=== PATIENT | male | born 1980 | race Caucasian/White ===

== ENCOUNTER 2016-08-30 14:06 | Emergency (ER) | payer OTHER ==
[~2016-08-30] VITALS: Ht 180.3 cm; Wt 89.0 kg
[~2016-08-30 14:06] MED LIST: CELEXA20 MG PO; HYDROCODON-ACE1 EAC7 PO; INDOCIN50 MG PO; LEVAQUIN750 MG PO; LITHOBID300 MG PO; MOTRIN800 MG PO; PROZAC10 MG PO; ROXICODONE5 MG PO; TAMIFLU75 MG PO; ULTRAM50 MG PO; ZOFRAN4 MG PO; denies home meds
[2016-08-30 15:16] LABS: HEMATOCRIT 42.8 % (38.0-50.0); MCH 28.4 PG (29.0-34.0); MCHC 32.5 G/DL (30.0-36.0); MCV 87.3 FL (86-99); MEAN PLAT.VOLUME 9.6 uM^3 (9.0-12.4); PLATELET COUNT 272 K/uL (156-360); RBC DIS.WIDTH-CV 12.5 % (11.8-14.6); RBC DIS.WIDTH-SD 39.8 % (39-53); WHITE BLOOD COUNT 10.5 K/uL (4.1-10.2)
[2016-08-30 15:26] LABS: CHLORIDE 104 mEq/L (99-109); SODIUM 139 mEq/L (136-147)
[2016-08-30 15:29] LABS: GLUCOSE 92 mg/dL (70-99)
[2016-08-30 15:30] LABS: ANION GAP 9 MEQ/L (2-14)
[2016-08-30 15:31] LABS: TOTAL BILIRUBIN 1.1 mg/dL (0.0-1.0)
[2016-08-30 15:32] LABS: ALKALINE PHOSPHATASE 115 IU/L (3-129); GFR ESTIMATE (CALCULATED) > 59 mL/min/
[2016-08-30 15:33] LABS: UREA NITROGEN (BUN) 9 mg/dL (9-23)
[2016-08-30 16:30] LABS: ADD MIUA? NO; BILIRUBIN NEGATIVE; BLOOD NEGATIVE; COLOR STRAW ((YELLOW)); GLUCOSE (STRIP) NEGATIVE; KETONES 20; LEUKOCYTES NEGATIVE; NITRITE NEGATIVE; PROTEIN (STRIP) NEGATIVE; SPECIFIC GRAVITY 1.005 (1.000-1.030); UCUL ADDED? NO; UROBILINOGEN 0.2 MG/DL (0.2-1.0)
[2016-08-30 16:30] LABS: LIPASE 6 U/L (1.0-51.0)
[2016-08-30] MEDS ORDERED: ZOFRAN ODT4 MG PO (19:22)
[2016-08-30] MEDS ORDERED: FLAGYL500 MG PO (19:22)
[2016-08-30] MEDS ORDERED: BENTYL20 MG PO (19:22)
[2016-08-30 19:47] VITALS: BP 114/65
== END 2016-08-30 19:47 | disposition home or self-care (01) ==
LOC: EME 14:06
DX: A04.9 Bacterial intestinal infection, unspecified (principal); R10.30 Lower abdominal pain, unspecified; Z88.0 Allergy status to penicillin; Z88.8 Allergy status to other drugs, medicaments and biological substances; R11.0 Nausea
CPT/HCPCS: 74176; 80053; 81003; 83690; 85027; 87493; 87506; 99281; 99284; J0500

== ENCOUNTER 2016-12-11 17:13 | Emergency (ER) | payer OTHER ==
[~2016-12-11] VITALS: Ht 180.3 cm; Wt 87.0 kg
[~2016-12-11 17:13] MED LIST changes: +BENTYL20 MG PO; +FLAGYL500 MG PO; +ZOFRAN ODT4 MG PO
[2016-12-11 18:03] LABS: ADD MIUA? YES; BILIRUBIN NEGATIVE; BLOOD MODERATE; COLOR YELLOW ((YELLOW)); GLUCOSE (STRIP) NEGATIVE; KETONES NEGATIVE; LEUKOCYTES NEGATIVE; NITRITE NEGATIVE; PROTEIN (STRIP) NEGATIVE; SPECIFIC GRAVITY 1.013 (1.000-1.030); UROBILINOGEN 0.2 MG/DL (0.2-1.0)
[2016-12-11 18:04] LABS: HEMATOCRIT 45.9 % (38.0-50.0); MCH 28.6 PG (29.0-34.0); MCHC 32.9 G/DL (30.0-36.0); MCV 86.9 FL (86-99); MEAN PLAT.VOLUME 9.7 uM^3 (9.0-12.4); PLATELET COUNT 244 K/uL (156-360); RBC DIS.WIDTH-CV 13.8 % (11.8-14.6); RBC DIS.WIDTH-SD 44.2 % (39-53); RED BLOOD COUNT 5.28 M/uL (4.00-5.50); WHITE BLOOD COUNT 8.9 K/uL (4.1-10.2)
[2016-12-11 18:06] LABS: BACTERIA RARE /HPF; EPITHELIAL CELLS NONE SEEN /HPF; MUCUS 1+ /LPF; RED BLOOD CELLS 20-30 /HPF (0-5); UCUL ADDED? NO; WHITE BLOOD CELLS 0-5 /HPF (0-5)
[2016-12-11] MEDS ORDERED: CLONIDINE HCL0.1 MG PO (18:07)
[2016-12-11] MEDS ORDERED: CITALOPRAM HBR20 MG PO (18:07)
[2016-12-11] MEDS ORDERED: QUETIAPINE FUM100 MG PO (18:07)
[2016-12-11 18:14] LABS: CHLORIDE 103 mEq/L (99-109); SODIUM 139 mEq/L (136-147)
[2016-12-11 18:16] LABS: GLUCOSE 93 mg/dL (70-99)
[2016-12-11 18:17] LABS: ANION GAP 9 MEQ/L (2-14)
[2016-12-11 18:18] LABS: TOTAL BILIRUBIN 1.4 mg/dL (0.0-1.0)
[2016-12-11 18:20] LABS: ALKALINE PHOSPHATASE 90 IU/L (3-129); GFR ESTIMATE (CALCULATED) > 59 mL/min/
[2016-12-11 18:21] LABS: UREA NITROGEN (BUN) 9 mg/dL (9-23)
[2016-12-11] MEDS ORDERED: ROXICODONE5 MG PO (20:19)
[2016-12-11] MEDS ORDERED: ZOFRAN ODT4 MG PO (20:19)
[2016-12-11 20:32] VITALS: BP 107/77
== END 2016-12-11 20:33 | disposition home or self-care (01) ==
LOC: EME 17:13
DX: N20.1 Calculus of ureter (principal); R30.0 Dysuria; R11.2 Nausea with vomiting, unspecified; F17.200 Nicotine dependence, unspecified, uncomplicated
CPT/HCPCS: 74176; 80053; 81003; 85027; 99281; 99284

== ENCOUNTER 2016-12-17 10:53 | Emergency (ER) | payer OTHER ==
[~2016-12-17] VITALS: Ht 180.3 cm; Wt 87.1 kg
[~2016-12-17 10:53] MED LIST changes: +CITALOPRAM HBR20 MG PO; +CLONIDINE HCL0.1 MG PO; +QUETIAPINE FUM100 MG PO
[2016-12-17 11:51] LABS: ADD MIUA? YES; BILIRUBIN NEGATIVE; BLOOD NEGATIVE; COLOR YELLOW ((YELLOW)); GLUCOSE (STRIP) NEGATIVE; KETONES NEGATIVE; LEUKOCYTES NEGATIVE; NITRITE NEGATIVE; PROTEIN (STRIP) 30; SPECIFIC GRAVITY 1.026 (1.000-1.030); UROBILINOGEN 0.2 MG/DL (0.2-1.0)
[2016-12-17 12:29] LABS: HEMATOCRIT 44.2 % (38.0-50.0); MCH 28.2 PG (29.0-34.0); MCHC 32.1 G/DL (30.0-36.0); MCV 87.7 FL (86-99); MEAN PLAT.VOLUME 10.2 uM^3 (9.0-12.4); PLATELET COUNT 215 K/uL (156-360); RBC DIS.WIDTH-CV 14.1 % (11.8-14.6); RBC DIS.WIDTH-SD 45.1 % (39-53); RED BLOOD COUNT 5.04 M/uL (4.00-5.50); WHITE BLOOD COUNT 5.7 K/uL (4.1-10.2)
[2016-12-17 12:49] LABS: BACTERIA RARE /HPF; EPITHELIAL CELLS RARE /HPF; MUCUS 4+ /LPF; WHITE BLOOD CELLS 0-5 /HPF (0-5)
[2016-12-17 12:50] LABS: CHLORIDE 107 mEq/L (99-109); POTASSIUM 4.2 mEq/L (3.7-5.4); SODIUM 141 mEq/L (136-147)
[2016-12-17 12:51] LABS: GLUCOSE 110 mg/dL (70-99)
[2016-12-17 12:53] LABS: ANION GAP 6 MEQ/L (2-14)
[2016-12-17 12:55] LABS: GFR ESTIMATE (CALCULATED) > 59 mL/min/
[2016-12-17 12:56] LABS: UREA NITROGEN (BUN) 11 mg/dL (9-23)
[2016-12-17] MEDS ORDERED: CITRATE OF MAG296 ML PO (13:01)
[2016-12-17 13:22] VITALS: BP 124/73
== END 2016-12-17 13:07 | disposition home or self-care (01) ==
LOC: EME 10:53
PROVIDERS: Physician Assistant
DX: K59.00 Constipation, unspecified (principal); Z87.442 Personal history of urinary calculi; F17.200 Nicotine dependence, unspecified, uncomplicated
CPT/HCPCS: 74000; 80048; 81003; 85027; 99281; 99283; J1885

== ENCOUNTER 2017-02-07 23:06 | Emergency (ER) | payer OTHER ==
[~2017-02-07] VITALS: Ht 180.3 cm; Wt 86.4 kg
[~2017-02-07 23:06] MED LIST changes: +CITRATE OF MAG296 ML PO
[2017-02-07] MEDS ORDERED: NARCAN4 MG NS (23:56)
[2017-02-08 00:11] VITALS: BP 101/59
== END 2017-02-08 00:11 | disposition home or self-care (01) ==
LOC: EME 23:06
DX: T40.1X1A Poisoning by heroin, accidental (unintentional), initial encounter (principal); T40.5X1A Poisoning by cocaine, accidental (unintentional), initial encounter; F17.200 Nicotine dependence, unspecified, uncomplicated; B19.20 Unspecified viral hepatitis C without hepatic coma; Z88.0 Allergy status to penicillin; Z88.8 Allergy status to other drugs, medicaments and biological substances
CPT/HCPCS: 99281; 99284

== ENCOUNTER 2017-04-18 10:03 | Emergency (ER) | payer OTHER ==
[~2017-04-18] VITALS: Ht 180.3 cm; Wt 94.8 kg
[~2017-04-18 10:03] MED LIST changes: +NARCAN4 MG NS
[2017-04-18] MEDS ORDERED: PREDNISONE20 MG PO (13:00)
[2017-04-18] MEDS ORDERED: MUCINEX D ER T1 EAC1 PO (13:00)
[2017-04-18] MEDS ORDERED: VENTOLIN HFA18 GM IH (13:00)
[2017-04-18 13:52] VITALS: BP 118/71
== END 2017-04-18 13:55 | disposition home or self-care (01) ==
LOC: EME 10:03
DX: J40 Bronchitis, not specified as acute or chronic (principal); F17.200 Nicotine dependence, unspecified, uncomplicated; B19.20 Unspecified viral hepatitis C without hepatic coma; Z88.0 Allergy status to penicillin; Z88.6 Allergy status to analgesic agent
CPT/HCPCS: 71020; 94640; 99281; 99283

== ENCOUNTER 2017-04-25 12:29 | Emergency (ER) | payer OTHER ==
[~2017-04-25] VITALS: Ht 180.3 cm; Wt 97.1 kg
[~2017-04-25 12:29] MED LIST changes: +MUCINEX D ER T1 EAC1 PO; +PREDNISONE20 MG PO; +VENTOLIN HFA18 GM IH
[2017-04-25 13:15] LABS: HEMATOCRIT 43.1 % (38.0-50.0); MCH 29.6 PG (29.0-34.0); MCHC 33.9 G/DL (30.0-36.0); MCV 87.4 FL (86-99); PLATELET COUNT 209 K/uL (156-360); RBC DIS.WIDTH-CV 13.7 % (11.8-14.6); RBC DIS.WIDTH-SD 44.2 % (39-53); RED BLOOD COUNT 4.93 M/uL (4.00-5.50); WHITE BLOOD COUNT 8.1 K/uL (4.1-10.2)
[2017-04-25 13:38] LABS: ANION GAP 8 MEQ/L (2-14); CHLORIDE 99 MEQ/L (99-109); POTASSIUM 3.7 MEQ/L (3.7-5.4); SAMPLE HEMOLYSIS CHECK 0; SAMPLE ICTERIC CHECK 0; SAMPLE LIPEMIA CHECK 0; SODIUM 135 MEQ/L (136-147)
[2017-04-25 13:43] LABS: GFR ESTIMATE (CALCULATED) > 59 mL/min/ (58.99-99999); GLUCOSE 94 mg/dL (70-99); UREA NITROGEN (BUN) 16 mg/dL (9-23)
[2017-04-25] MEDS ORDERED: FLONASE16 G1 BOTH NARES (14:54)
[2017-04-25] MEDS ORDERED: VENTOLIN HFA18 GM IH (14:55)
[2017-04-25] MEDS ORDERED: MOTRIN600 MG PO (14:55)
[2017-04-25 15:04] VITALS: BP 114/86
== END 2017-04-25 15:09 | disposition home or self-care (01) ==
LOC: EME 12:29
DX: J06.9 Acute upper respiratory infection, unspecified (principal); B19.20 Unspecified viral hepatitis C without hepatic coma; Z87.891 Personal history of nicotine dependence; Z88.0 Allergy status to penicillin; Z88.8 Allergy status to other drugs, medicaments and biological substances; Z88.6 Allergy status to analgesic agent
CPT/HCPCS: 71020; 80048; 85027; 99281; 99283

== ENCOUNTER 2017-05-10 17:29 | Emergency (ER) | payer OTHER ==
[~2017-05-10] VITALS: Ht 180.3 cm; Wt 94.5 kg
[~2017-05-10 17:29] MED LIST changes: +FLONASE16 G1 BOTH NARES; +MOTRIN600 MG PO
[2017-05-10] MEDS ORDERED: VALTREX1000 MG PO (17:48)
[2017-05-10 18:09] LABS: HEMATOCRIT 44.1 % (38.0-50.0); HEMOGLOBIN 15.1 G/DL (12.5-16.6); MCH 29.5 PG (29.0-34.0); MCHC 34.2 G/DL (30.0-36.0); MCV 86.1 FL (86-99); PLATELET COUNT 255 K/uL (156-360); RBC DIS.WIDTH-CV 13.2 % (11.8-14.6); RBC DIS.WIDTH-SD 41.2 % (39-53); RED BLOOD COUNT 5.12 M/uL (4.00-5.50); WHITE BLOOD COUNT 9.4 K/uL (4.1-10.2)
[2017-05-10 18:11] LABS: APPEARANCE CLEAR ((CLEAR)); BILIRUBIN NEGATIVE; BLOOD NEGATIVE; COLOR YELLOW ((YELLOW)); GLUCOSE (STRIP) NEGATIVE; KETONES NEGATIVE; LEUKOCYTES NEGATIVE; NITRITE NEGATIVE; PROTEIN (STRIP) NEGATIVE; UCUL ADDED? NO
[2017-05-10 18:30] LABS: TROP-I INTERPRETATION NEGATIVE; TROPONIN-I < 0.01 ng/mL (0.0-0.30)
[2017-05-10 18:53] LABS: CHLORIDE 105 mEq/L (99-109); POTASSIUM 4.3 mEq/L (3.7-5.4); SODIUM 139 mEq/L (136-147)
[2017-05-10 18:55] LABS: GLUCOSE 96 mg/dL (70-99)
[2017-05-10 18:59] LABS: CREATININE 1.1 mg/dL (0.6-1.3); GFR ESTIMATE (CALCULATED) > 59 mL/min/ (58.99-99999)
[2017-05-10 19:00] LABS: UREA NITROGEN (BUN) 16 mg/dL (9-23)
[2017-05-10] MEDS ORDERED: FLOMAX0.4 MG PO (20:13)
[2017-05-10 21:27] LABS: TROP-I INTERPRETATION NEGATIVE; TROPONIN-I < 0.01 ng/mL (0.0-0.30)
[2017-05-10 22:12] VITALS: BP 125/79
== END 2017-05-10 22:13 | disposition home or self-care (01) ==
LOC: EME 17:29
PROVIDERS: Nurse Practitioner Family
DX: N20.0 Calculus of kidney (principal); A60.00 Herpesviral infection of urogenital system, unspecified; K76.0 Fatty (change of) liver, not elsewhere classified; B19.20 Unspecified viral hepatitis C without hepatic coma; F17.200 Nicotine dependence, unspecified, uncomplicated; F32.9 Major depressive disorder, single episode, unspecified; F41.9 Anxiety disorder, unspecified; Z88.0 Allergy status to penicillin; Z88.6 Allergy status to analgesic agent
CPT/HCPCS: 71046; 74177; 80048; 81003; 84484; 85027; 93005; 99281; 99285; J1885

== ENCOUNTER 2017-06-18 20:15 | Emergency (ER) | payer OTHER ==
[~2017-06-18] VITALS: Ht 180.3 cm; Wt 92.6 kg
[~2017-06-18 20:15] MED LIST changes: +FLOMAX0.4 MG PO; +VALTREX1000 MG PO
[2017-06-19] MEDS ORDERED: FLONASE16 G1 BOTH NARES (01:31)
[2017-06-19] MEDS ORDERED: KEFLEX500 MG PO (01:49)
[2017-06-19 01:55] VITALS: BP 127/73
== END 2017-06-19 01:58 | disposition home or self-care (01) ==
LOC: EME 20:15
DX: M79.1 Myalgia (principal); B34.9 Viral infection, unspecified; L03.011 Cellulitis of right finger; R05 Cough; J34.89 Other specified disorders of nose and nasal sinuses; R10.9 Unspecified abdominal pain; Z88.0 Allergy status to penicillin; F17.200 Nicotine dependence, unspecified, uncomplicated
CPT/HCPCS: 87502; 99281; 99284

== ENCOUNTER 2017-06-30 17:46 | Inpatient (IN) | payer OTHER ==
[~2017-06-30] VITALS: Ht 180.3 cm; Wt 89.8 kg
[~2017-06-30 17:46] MED LIST changes: +KEFLEX500 MG PO
[2017-06-30 18:51] LABS: APPEARANCE CLEAR ((CLEAR)); BILIRUBIN NEGATIVE; BLOOD NEGATIVE; COLOR YELLOW ((YELLOW)); GLUCOSE (STRIP) NEGATIVE; KETONES NEGATIVE; LEUKOCYTES NEGATIVE; NITRITE NEGATIVE; PROTEIN (STRIP) NEGATIVE; SPECIFIC GRAVITY 1.021 (1.000-1.030)
[2017-06-30 19:44] LABS: HEMATOCRIT 41.7 % (38.0-50.0); MCH 29.5 PG (29.0-34.0); MCHC 33.6 G/DL (30.0-36.0); MCV 87.8 FL (86-99); PLATELET COUNT 256 K/uL (156-360); RBC DIS.WIDTH-CV 13.2 % (11.8-14.6); RBC DIS.WIDTH-SD 42.4 % (39-53); RED BLOOD COUNT 4.75 M/uL (4.00-5.50); WHITE BLOOD COUNT 8.8 K/uL (4.1-10.2)
[2017-06-30 20:03] LABS: ALBUMIN 4.1 g/dL (3.2-4.8); CHLORIDE 105 mEq/L (99-109); POTASSIUM 3.8 mEq/L (3.7-5.4); SODIUM 139 mEq/L (136-147)
[2017-06-30 20:06] LABS: GLUCOSE 123 mg/dL (70-99); TOTAL PROTEIN 6.8 g/dL (6.4-8.3)
[2017-06-30 20:08] LABS: TOTAL BILIRUBIN 0.9 mg/dL (0.0-1.0)
[2017-06-30 20:09] LABS: ALKALINE PHOSPHATASE 91 IU/L (3-129); CREATININE 0.8 mg/dL (0.6-1.3); GFR ESTIMATE (CALCULATED) > 59 mL/min/ (58.99-99999)
[2017-06-30 20:10] LABS: UREA NITROGEN (BUN) 14 mg/dL (9-23)
[2017-06-30 20:11] LABS: AST (GOT) 21 IU/L (2-34)
[2017-06-30 20:12] LABS: ALT (GPT) 16 IU/L (3-49)
[2017-06-30 20:13] LABS: LIPASE 424 U/L (1.0-51.0)
[2017-06-30 20:47] LABS: SERUM ETHYL ALCOHOL < 10 mg/dL
[2017-06-30] MEDS ORDERED: CELEXA40 MG PO (21:36)
[2017-06-30] MEDS ORDERED: FLONASE16 G1 BOTH NARES (21:36)
[2017-06-30] MEDS ORDERED: ADVIL200 MG PO (21:38)
[2017-06-30 22:12] VITALS: BP 106/61
[2017-06-30 22:44] LABS: C-REACTIVE PROTEIN 3.8 MG/L (0-10); TRIGLYCERIDES 87 MG/DL (Normal: <150)
[2017-07-01 06:18] LABS: BASOPHIL (%) 0.3 % (0-1); EOSINOPHIL (%) 2.6 % (0-5); EOSINOPHIL COUNT 0.2 K/uL (0-0.3); HEMOGLOBIN 12.4 G/DL (12.5-16.6); IMMATURE GRANULOCYTE (%) 0.3 % (0.0-0.7); LYMPHOCYTE (%) 49.3 % (15-42); LYMPHOCYTE COUNT 3.2 K/uL (1.0-2.8); MCH 29.3 PG (29.0-34.0); MCHC 32.6 G/DL (30.0-36.0); MCV 89.8 FL (86-99); MONOCYTE (%) 6.8 % (3-12); MONOCYTE COUNT 0.4 K/uL (0-0.8); NEUTROPHIL (%) 40.7 % (45-76); NEUTROPHIL COUNT 2.6 K/uL (1.8-6.4); PLATELET COUNT 202 K/uL (156-360); RBC DIS.WIDTH-CV 13.5 % (11.8-14.6); RBC DIS.WIDTH-SD 44.1 % (39-53); RED BLOOD COUNT 4.23 M/uL (4.00-5.50); WHITE BLOOD COUNT 6.5 K/uL (4.1-10.2)
[2017-07-01 06:40] VITALS: BP 95/51
[2017-07-01 06:56] LABS: ALBUMIN 3.5 G/DL (3.2-4.8); ALKALINE PHOSPHATASE 63 IU/L (3-129); ALT (GPT) 11 IU/L (3-49); AST (GOT) 15 IU/L (2-34); CHLORIDE 110 MEQ/L (99-109); CREATININE 0.7 MG/DL (0.6-1.3); GFR ESTIMATE (CALCULATED) > 59 mL/min/ (58.99-99999); LIPASE 11 U/L (1.0-51.0); POTASSIUM 3.7 MEQ/L (3.7-5.4); SODIUM 143 MEQ/L (136-147); TOTAL BILIRUBIN 0.9 MG/DL (0.0-1.0); TOTAL PROTEIN 5.2 G/DL (6.4-8.3); UREA NITROGEN (BUN) 13 mg/dL (9-23)
[2017-07-01 07:03] LABS: GLUCOSE 90 mg/dL (70-99)
[2017-07-01 15:06] VITALS: BP 97/55
[2017-07-01 23:29] VITALS: BP 95/56
[2017-07-02 06:12] LABS: BASOPHIL (%) 0.7 % (0-1); EOSINOPHIL COUNT 0.2 K/uL (0-0.3); HEMATOCRIT 38.2 % (38.0-50.0); HEMOGLOBIN 12.2 G/DL (12.5-16.6); IMMATURE GRANULOCYTE (%) 0.3 % (0.0-0.7); LYMPHOCYTE (%) 46.2 % (15-42); LYMPHOCYTE COUNT 2.8 K/uL (1.0-2.8); MCH 28.8 PG (29.0-34.0); MCHC 31.9 G/DL (30.0-36.0); MCV 90.1 FL (86-99); MONOCYTE (%) 6.8 % (3-12); MONOCYTE COUNT 0.4 K/uL (0-0.8); NEUTROPHIL COUNT 2.6 K/uL (1.8-6.4); PLATELET COUNT 227 K/uL (156-360); RBC DIS.WIDTH-CV 13.3 % (11.8-14.6); RBC DIS.WIDTH-SD 43.9 % (39-53); RED BLOOD COUNT 4.24 M/uL (4.00-5.50); WHITE BLOOD COUNT 6.1 K/uL (4.1-10.2)
[2017-07-02 06:36] LABS: ALBUMIN 3.5 G/DL (3.2-4.8); ALKALINE PHOSPHATASE 49 IU/L (3-129); ALT (GPT) 12 IU/L (3-49); AST (GOT) 15 IU/L (2-34); CHLORIDE 105 MEQ/L (99-109); CREATININE 0.8 MG/DL (0.6-1.3); GFR ESTIMATE (CALCULATED) > 59 mL/min/ (58.99-99999); GLUCOSE 82 mg/dL (70-99); SODIUM 139 MEQ/L (136-147); TOTAL PROTEIN 5.1 G/DL (6.4-8.3); UREA NITROGEN (BUN) 9 mg/dL (9-23)
[2017-07-02 06:38] LABS: TOTAL BILIRUBIN 1.4 MG/DL (0.0-1.0)
[2017-07-02 07:19] VITALS: BP 107/52
[2017-07-02 11:25] VITALS: BP 113/72
[2017-07-03] MEDS ORDERED: ZOFRAN8 MG PO (01:19)
[2017-07-03] MEDS ORDERED: OXAYDO5 MG PO (01:19)
== END 2017-07-02 13:20 | disposition home or self-care (01) | DRG 440 ==
LOC: EME 17:46 → 5EAST 21:18 → EDOF 21:18 → ENRESERV 21:19 → 5EAST 22:10
PROVIDERS: Hospitalist; Physician Assistant
DX: K85.90 Acute pancreatitis without necrosis or infection, unspecified (principal); F32.9 Major depressive disorder, single episode, unspecified; N20.0 Calculus of kidney; B19.20 Unspecified viral hepatitis C without hepatic coma; F17.210 Nicotine dependence, cigarettes, uncomplicated; F70 Mild intellectual disabilities; F19.11 Other psychoactive substance abuse, in remission; Z80.8 Family history of malignant neoplasm of other organs or systems; Z83.3 Family history of diabetes mellitus
CPT/HCPCS: 74176; 76705; 80053; 81003; 83690; 84478; 85025; 85027; 86140; 90686; 99202; 99281; 99285; C9113; G0480; J1650; J1885; J2270; J7030; J7120

== ENCOUNTER 2017-07-02 23:50 | Emergency (ER) | payer OTHER ==
[~2017-07-02] VITALS: Ht 180.3 cm; Wt 90.8 kg
[~2017-07-02 23:50] MED LIST changes: +ADVIL200 MG PO; +CELEXA40 MG PO
[2017-07-03 00:11] LABS: HEMOGLOBIN 13.2 G/DL (12.5-16.6); MCH 29.8 PG (29.0-34.0); MCHC 33.8 G/DL (30.0-36.0); PLATELET COUNT 257 K/uL (156-360); RBC DIS.WIDTH-CV 12.8 % (11.8-14.6); RBC DIS.WIDTH-SD 41.9 % (39-53); RED BLOOD COUNT 4.43 M/uL (4.00-5.50); WHITE BLOOD COUNT 7.7 K/uL (4.1-10.2)
[2017-07-03 00:27] LABS: CHLORIDE 108 mEq/L (99-109); POTASSIUM 3.8 mEq/L (3.7-5.4); SODIUM 141 mEq/L (136-147)
[2017-07-03 00:30] LABS: TOTAL PROTEIN 6.6 g/dL (6.4-8.3)
[2017-07-03 00:31] LABS: TOTAL BILIRUBIN 0.8 mg/dL (0.0-1.0)
[2017-07-03 00:33] LABS: ALKALINE PHOSPHATASE 91 IU/L (3-129); CREATININE 0.8 mg/dL (0.6-1.3); GFR ESTIMATE (CALCULATED) > 59 mL/min/ (58.99-99999)
[2017-07-03 00:34] LABS: UREA NITROGEN (BUN) 8 mg/dL (9-23)
[2017-07-03 00:35] LABS: AST (GOT) 21 IU/L (2-34)
[2017-07-03 00:36] LABS: ALT (GPT) 16 IU/L (3-49); LIPASE 23 U/L (1.0-51.0)
[2017-07-03 00:44] LABS: GLUCOSE 110 mg/dL (70-99)
[2017-07-03] MEDS ORDERED: OXAYDO5 MG PO (01:19)
[2017-07-03] MEDS ORDERED: ZOFRAN8 MG PO (01:19)
[2017-07-03 01:48] VITALS: BP 126/76
== END 2017-07-03 01:50 | disposition home or self-care (01) ==
LOC: EME → EDBD 23:50 → EME 23:50
PROVIDERS: Emergency Medicine
DX: K85.90 Acute pancreatitis without necrosis or infection, unspecified (principal); K86.1 Other chronic pancreatitis; F11.10 Opioid abuse, uncomplicated; B19.20 Unspecified viral hepatitis C without hepatic coma; F41.9 Anxiety disorder, unspecified; F32.9 Major depressive disorder, single episode, unspecified; F17.200 Nicotine dependence, unspecified, uncomplicated; Z87.442 Personal history of urinary calculi; Z88.6 Allergy status to analgesic agent; Z88.8 Allergy status to other drugs, medicaments and biological substances; Z88.0 Allergy status to penicillin
CPT/HCPCS: 80053; 83605; 83690; 85027; 99281; 99284; J2270

== ENCOUNTER 2017-07-03 18:22 | Emergency (ER) | payer OTHER ==
[~2017-07-03] VITALS: Ht 180.3 cm; Wt 91.0 kg
[~2017-07-03 18:22] MED LIST changes: +OXAYDO5 MG PO; +ZOFRAN8 MG PO
[2017-07-03 20:54] LABS: HEMATOCRIT 38.5 % (38.0-50.0); HEMOGLOBIN 13.2 G/DL (12.5-16.6); MCHC 34.3 G/DL (30.0-36.0); MCV 87.5 FL (86-99); PLATELET COUNT 246 K/uL (156-360); RBC DIS.WIDTH-SD 41.2 % (39-53); WHITE BLOOD COUNT 11.3 K/uL (4.1-10.2)
[2017-07-03 21:06] LABS: ALBUMIN 4.2 g/dL (3.2-4.8); CHLORIDE 103 mEq/L (99-109); POTASSIUM 3.7 mEq/L (3.7-5.4); SODIUM 138 mEq/L (136-147)
[2017-07-03 21:09] LABS: TOTAL PROTEIN 6.8 g/dL (6.4-8.3)
[2017-07-03 21:12] LABS: ALKALINE PHOSPHATASE 71 IU/L (3-129); CREATININE 0.9 mg/dL (0.6-1.3); GFR ESTIMATE (CALCULATED) > 59 mL/min/ (58.99-99999); GLUCOSE 181 mg/dL (70-99); TOTAL BILIRUBIN 1.1 mg/dL (0.0-1.0)
[2017-07-03 21:13] LABS: UREA NITROGEN (BUN) 10 mg/dL (9-23)
[2017-07-03 21:14] LABS: AST (GOT) 30 IU/L (2-34)
[2017-07-03 21:15] LABS: ALT (GPT) 19 IU/L (3-49)
[2017-07-03 21:16] LABS: LIPASE 8 U/L (1.0-51.0)
[2017-07-03 21:40] VITALS: BP 115/68
== END 2017-07-03 21:41 | disposition home or self-care (01) ==
LOC: EME 18:22
PROVIDERS: Physician Assistant
DX: K85.90 Acute pancreatitis without necrosis or infection, unspecified (principal); Z87.442 Personal history of urinary calculi; B19.20 Unspecified viral hepatitis C without hepatic coma; F41.9 Anxiety disorder, unspecified; F32.9 Major depressive disorder, single episode, unspecified; F17.200 Nicotine dependence, unspecified, uncomplicated; Z88.6 Allergy status to analgesic agent; Z88.0 Allergy status to penicillin; Z88.8 Allergy status to other drugs, medicaments and biological substances
CPT/HCPCS: 80053; 83690; 85027; 99281; 99284; J1885; J7030

== ENCOUNTER 2017-09-29 15:53 | Emergency (ER) | payer OTHER ==
[~2017-09-29] VITALS: Ht 180.3 cm; Wt 87.4 kg
[2017-09-29 19:46] LABS: HEMATOCRIT 41.9 % (38.0-50.0); HEMOGLOBIN 14.2 G/DL (12.5-16.6); MCH 30.1 PG (29.0-34.0); MCHC 33.9 G/DL (30.0-36.0); MCV 88.8 FL (86-99); PLATELET COUNT 204 K/uL (156-360); RBC DIS.WIDTH-CV 12.8 % (11.8-14.6); RBC DIS.WIDTH-SD 42.2 % (39-53); RED BLOOD COUNT 4.72 M/uL (4.00-5.50); WHITE BLOOD COUNT 8.4 K/uL (4.1-10.2)
[2017-09-29 19:56] LABS: CHLORIDE 102 mEq/L (99-109); SODIUM 138 mEq/L (136-147)
[2017-09-29 19:57] LABS: GLUCOSE 83 mg/dL (70-99)
[2017-09-29 20:01] LABS: CREATININE 0.8 mg/dL (0.6-1.3); GFR ESTIMATE (CALCULATED) > 59 mL/min/ (58.99-99999)
[2017-09-29 20:02] LABS: UREA NITROGEN (BUN) 12 mg/dL (9-23)
[2017-09-29 20:49] VITALS: BP 122/73
== END 2017-09-29 20:50 | disposition home or self-care (01) ==
LOC: EME 15:53
PROVIDERS: Physician Assistant
DX: R51 Headache (principal); R07.81 Pleurodynia; M79.644 Pain in right finger(s); W18.30XA Fall on same level, unspecified, initial encounter; R42 Dizziness and giddiness; R55 Syncope and collapse; F17.200 Nicotine dependence, unspecified, uncomplicated
CPT/HCPCS: 70450; 71046; 73140; 80048; 85027; 93005; 99281; 99284; J1885; J7030

== ENCOUNTER 2017-10-06 00:45 | Emergency (ER) | payer OTHER ==
[~2017-10-06] VITALS: Ht 180.3 cm; Wt 87.3 kg
[2017-10-06] MEDS ORDERED: ULTRAM50 MG PO (03:20)
[2017-10-06 03:30] VITALS: BP 123/80
== END 2017-10-06 03:31 | disposition home or self-care (01) ==
LOC: EXP 00:45 → EME 00:45 → EXP 03:31
DX: S02.2XXA Fracture of nasal bones, initial encounter for closed fracture (principal); S22.32XA Fracture of one rib, left side, initial encounter for closed fracture; Y04.8XXA Assault by other bodily force, initial encounter; Y92.410 Unspecified street and highway as the place of occurrence of the external cause; Z88.0 Allergy status to penicillin; Z88.6 Allergy status to analgesic agent; Z88.8 Allergy status to other drugs, medicaments and biological substances
CPT/HCPCS: 70450; 70486; 71101; 99281; 99283

== ENCOUNTER 2017-10-12 15:20 | Emergency (ER) | payer OTHER ==
[~2017-10-12] VITALS: Ht 180.3 cm; Wt 87.0 kg
[2017-10-12] MEDS ORDERED: OXYCODONE HCL5 MG PO (19:35)
[2017-10-12 19:50] VITALS: BP 116/76
== END 2017-10-12 19:53 | disposition home or self-care (01) ==
LOC: EME 15:20
DX: S22.32XD Fracture of one rib, left side, subsequent encounter for fracture with routine healing (principal); F17.200 Nicotine dependence, unspecified, uncomplicated; Z88.0 Allergy status to penicillin; Z88.6 Allergy status to analgesic agent; Z88.8 Allergy status to other drugs, medicaments and biological substances
CPT/HCPCS: 71046; 99281; 99284

== ENCOUNTER 2017-10-24 23:45 | Emergency (ER) | payer OTHER ==
[~2017-10-24] VITALS: Ht 180.3 cm; Wt 86.1 kg
[~2017-10-24 23:45] MED LIST changes: +OXYCODONE HCL5 MG PO
[2017-10-25] MEDS ORDERED: FLEXERIL10 MG PO (01:33)
[2017-10-25] MEDS ORDERED: LIDODERM 5% P1 PATCH TD (01:33)
[2017-10-25 01:49] VITALS: BP 121/75
== END 2017-10-25 01:50 | disposition home or self-care (01) ==
LOC: EME 23:45
DX: S22.32XD Fracture of one rib, left side, subsequent encounter for fracture with routine healing (principal); Y04.2XXD Assault by strike against or bumped into by another person, subsequent encounter; F17.200 Nicotine dependence, unspecified, uncomplicated
CPT/HCPCS: 71250; 99281; 99283

== ENCOUNTER 2017-10-29 15:12 | Emergency (ER) | payer OTHER ==
[~2017-10-29] VITALS: Ht 180.3 cm; Wt 86.0 kg
[~2017-10-29 15:12] MED LIST changes: +FLEXERIL10 MG PO; +LIDODERM 5% P1 PATCH TD
[2017-10-29] MEDS ORDERED: LIDODERM 5% P1 PATCH TD (16:40)
[2017-10-29] MEDS ORDERED: VOLTAREN 1% GE100 GM TP (16:40)
[2017-10-29] MEDS ORDERED: ROXICODONE5 MG PO (16:40)
[2017-10-29 17:17] VITALS: BP 121/73
== END 2017-10-29 17:18 | disposition home or self-care (01) ==
LOC: EME 15:12
DX: S22.32XA Fracture of one rib, left side, initial encounter for closed fracture (principal); Y04.8XXA Assault by other bodily force, initial encounter; Z76.0 Encounter for issue of repeat prescription; G43.909 Migraine, unspecified, not intractable, without status migrainosus; B19.20 Unspecified viral hepatitis C without hepatic coma; F41.9 Anxiety disorder, unspecified; F32.9 Major depressive disorder, single episode, unspecified; F17.200 Nicotine dependence, unspecified, uncomplicated; Z87.19 Personal history of other diseases of the digestive system; Z87.442 Personal history of urinary calculi; Z88.6 Allergy status to analgesic agent; Z88.0 Allergy status to penicillin; Z88.8 Allergy status to other drugs, medicaments and biological substances
CPT/HCPCS: 99281; 99284

== ENCOUNTER 2017-11-23 12:21 | Emergency (ER) | payer OTHER ==
[~2017-11-23] VITALS: Ht 180.3 cm; Wt 87.0 kg
[~2017-11-23 12:21] MED LIST changes: +VOLTAREN 1% GE100 GM TP
[2017-11-23 12:34] VITALS: BP 101/67
== END 2017-11-23 14:31 | disposition left against medical advice (07) ==
LOC: EME 12:21
DX: R07.81 Pleurodynia (principal); Z53.21 Procedure and treatment not carried out due to patient leaving prior to being seen by health care provider
CPT/HCPCS: 71100

== ENCOUNTER 2017-12-26 19:08 | Emergency (ER) | payer OTHER ==
[~2017-12-26] VITALS: Ht 182.9 cm; Wt 87.5 kg
[2017-12-26] MEDS ORDERED: MOBIC7.5 MG PO (19:47)
[2017-12-26 21:02] VITALS: BP 125/79
== END 2017-12-26 21:15 | disposition home or self-care (01) ==
LOC: EME 19:08
DX: S83.92XA Sprain of unspecified site of left knee, initial encounter (principal); W01.0XXA Fall on same level from slipping, tripping and stumbling without subsequent striking against object, initial encounter; Z72.0 Tobacco use; Z88.6 Allergy status to analgesic agent; Z88.0 Allergy status to penicillin; Z88.8 Allergy status to other drugs, medicaments and biological substances
CPT/HCPCS: 73564; 99281; 99283